=== PATIENT | male | born 1985 | race American Indian/Alaskan Native ===

== ENCOUNTER 2018-11-08 13:20 | Emergency (ER) | payer SELFPAY ==
--- NOTE | 2018-11-08 13:49 | Emergency Department Report ---
Blank Doc - Documentation Documentation: This is a 33-year-old male that presents with abdominal pain with nausea and d iarrhea. Denies vomiting. This initial assessment/diagnostic orders/clinical plan/treatment(s) is/are subject to change based on patient's health status, clinical progression and re- assessment by fellow clinical providers in the ED. Further treatment and workup at subsequent clinical providers discretion. Patient/guardians urged not to elope from the ED as their condition may be serious if not clinically assessed and managed. Initial orders include: 1- Patient sent to [facility] for further evaluation and treatment 2- labs 3- UA
[2018-11-08 13:50] VITALS: BP 150/93
== END 2018-11-08 18:11 | disposition left against medical advice (07) ==
LOC: ED 13:20
DX: R10.9 Unspecified abdominal pain (principal); R11.2 Nausea with vomiting, unspecified; Z53.21 Procedure and treatment not carried out due to patient leaving prior to being seen by health care provider